=== PATIENT | male | born 1985 | race Two or more races ===

== ENCOUNTER 2023-03-14 15:33 | Emergency (ER) | payer SELFPAY ==
[~2023-03-14] VITALS: Ht 172.7 cm; Wt 110.0 kg
[2023-03-14 17:59] LABS: Basophils # (auto) 0.1 10 ^3/uL (0-0.2); Basophils % (auto) 1.1 % (0.0-2.0); Eosinophils # (auto) 0.1 10 ^3/uL (0-0.8); Eosinophils % (auto) 2.4 % (0.0-7.0); Hematocrit 43.7 % (41.0-53.0); Hemoglobin 14.5 g/dL (13.5-17.5); Lymphocytes # (auto) 2.3 10 ^3/uL (0.4-5.4); Mean Corpuscular Hemoglobin 27.1 pg (28.0-32.0); Mean Corpuscular Hgb Conc. 33.3 g/dL (32.0-36.0); Mean Corpuscular Volume 81.6 fL (80.0-100.0); Monocytes # (auto) 0.5 10 ^3/uL (0-1.3); Monocytes % (auto) 10.4 % (0.0-12.0); Neutrophils % (auto) 40.1 % (37.0-80.0); Nucleated Red Blood Cells % 0.1 %; Red Blood Cells 5.36 10^6/uL (4.5-5.90); Red Cell Distribution Width 12.9 % (11.8-14.3)
[2023-03-14 18:29] LABS: Albumin 3.8 g/dL (3.4-5.0); Calcium 8.5 mg/dL (8.5-10.1); Potassium 3.4 mmol/L (3.5-5.1)
[2023-03-14 18:32] LABS: BUN/Creatinine Ratio 7.1 (10.0-20.0); Bilirubin, Total 0.2 mg/dL (0.2-1.0); Total Protein 7.5 g/dL (6.4-8.2)
[2023-03-14] MEDS ORDERED: SODIUM CHLORIDE 0.9% 2,000 ML IV ONE (19:15)
[2023-03-14] MEDS ORDERED: ACETAMINOPHEN 500 MG TAB PO ONE (20:30)
[2023-03-14] MEDS ORDERED: MORPHINE SULFATE 4 MG/ML SYR/VIAL IM ONE (20:45)
[2023-03-14] MEDS ORDERED: ONDANSETRON ODT 4 MG TAB PO ONE (20:45)
[2023-03-14] MEDS ORDERED: ACET-1079 PO (21:01)
[2023-03-14 21:59] VITALS: BP 116/77
== END 2023-03-14 22:30 | disposition home or self-care (01) ==
LOC: ER 15:33
DX: G44.309 Post-traumatic headache, unspecified, not intractable (principal); R73.9 Hyperglycemia, unspecified
CPT/HCPCS: 36415; 70450; 72125; 80053; 83036; 85025; 96360; 96361; 96372; 99285; J2270; J7030; Q0162